=== PATIENT | female | born 1960 | race Caucasian/White ===

== ENCOUNTER → 2018-02-20 | Outpatient (CLI) | payer BC ==
--- NOTE | 2018-02-22 09:14 | MM ---
Reason for exam: screening (asymptomatic). Last mammogram was performed 1 year and 5 months ago. History: Patient is postmenopausal. Family history of breast cancer in maternal grandmother. Physical Findings: A clinical breast exam by your physician is recommended on an annual basis and results should be correlated with mammographic findings. MG Screening Mammo w CAD Bilateral CC and MLO view(s) were taken. XCCL view(s) were taken of the left breast. Prior study comparison: September 29, 2016, bilateral MG screening mammo w CAD. March 19, 2015, bilateral MG screening mammo w CAD. There are scattered fibroglandular densities. No significant changes when compared with prior studies. ASSESSMENT: Negative, BI-RAD 1 RECOMMENDATION: Routine screening mammogram of both breasts in 1 year.
== END | disposition home or self-care (01) ==
LOC: RADMAMWWP 13:25
PROVIDERS: ATTEND Family Medicine
DX: Z12.31 Encounter for screening mammogram for malignant neoplasm of breast (principal)
CPT/HCPCS: 77067

== ENCOUNTER → 2019-08-01 | Outpatient (CLI) | payer BC ==
--- NOTE | 2019-08-02 09:08 | MM ---
Reason for exam: screening (asymptomatic). Last mammogram was performed 1 year and 5 months ago. History: Patient is postmenopausal. Family history of breast cancer in maternal grandmother. Physical Findings: A clinical breast exam by your physician is recommended on an annual basis and results should be correlated with mammographic findings. MG Screening Mammo w CAD Bilateral CC and MLO view(s) were taken. Prior study comparison: February 20, 2018, bilateral MG screening mammo w CAD. September 29, 2016, bilateral MG screening mammo w CAD. There are scattered fibroglandular densities. There are benign appearing round calcifications bilaterally. There is no discrete abnormality. ASSESSMENT: Benign, BI-RAD 2 RECOMMENDATION: Routine screening mammogram of both breasts in 1 year.
== END ==
LOC: RADMAMWWP 11:08
PROVIDERS: ATTEND Family Medicine
DX: Z12.31 Encounter for screening mammogram for malignant neoplasm of breast (principal)
CPT/HCPCS: 77067

== ENCOUNTER → 2020-08-04 | Outpatient (CLI) | payer BC ==
--- NOTE | 2020-08-05 13:53 | MM ---
Reason for exam: screening (asymptomatic). Last mammogram was performed 1 year ago. History: Patient is postmenopausal. Family history of breast cancer in maternal grandmother. Physical Findings: A clinical breast exam by your physician is recommended on an annual basis and results should be correlated with mammographic findings. MG Screening Mammo w CAD Bilateral CC and MLO view(s) were taken. Prior study comparison: August 01, 2019, bilateral MG screening mammo w CAD. February 20, 2018, bilateral MG screening mammo w CAD. There are scattered fibroglandular densities. Stable benign calcifications. There is no discrete abnormality. No significant changes when compared with prior studies. ASSESSMENT: Benign, BI-RAD 2 RECOMMENDATION: Routine screening mammogram of both breasts in 1 year.
== END | disposition home or self-care (01) ==
LOC: RADMAMWWP 16:19
PROVIDERS: ATTEND Obstetrics & Gynecology
DX: Z12.31 Encounter for screening mammogram for malignant neoplasm of breast (principal)
CPT/HCPCS: 77067

== ENCOUNTER → 2022-04-28 | Outpatient (CLI) | payer BC ==
--- NOTE | 2022-04-28 12:31 | BD ---
EXAMINATION TYPE: Axial Bone Density DATE OF EXAM: 04/28/2022 COMPARISON: NONE CLINICAL HISTORY: 61 years year old Female. 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 Type 1 Diabetes: NO 2. Hyperthyroidism: NO 3. Menopause before 45: NO 4. Malnutrition: NO 5. Chronic liver disease: NO Rheumatoid Arthritis: NO Current Tobacco Use: NO RISK FACTORS HISTORY OF: Hip Fracture (Right/Left): NO Spine Fracture: NO History of Wrist Fracture: NO Surgery to Spine/Hip(right/left)/Wrist (right/left): NO Family History of Osteoporosis: NO Active: YES Diet low in dairy products/other sources of calcium: NO Postmenopausal woman: YES Take estrogen and/or progesterone medications: NO Lost more than 2 inches in height since high school: NO Frequent falls: NO Poor Health: NO Hyperparathyroidism: NO Adrenal Insufficiency: NO MEDICATIONS: Prednisone or other steroids: NO Thyroid Medications:NO Osteoporosis Medications: Which medication: NO Additional Medications: BP MEDS, CHOLESTEROL MEDS, METFORMIN, FISH OIL, EXAM MEASUREMENTS: Bone mineral densitometry was performed using the [employer] System. Bone mineral density as measured about the Lumbar spine is: ----- L1-L4(G/cm2): 1.409 T Score Values are as follows: ----- L1: 1.9 ----- L2: 1.8 ----- L3: 2.2 ----- L4: 1.6 ----- L1-L4: 1.9 BASELINE STUDY Bone mineral density about the R hip (g/cm2): 1.290 Bone mineral density about the L hip (g/cm2): 1.153 T Score values are as follows: -----R Neck: 1.8 -----L Neck: 0.8 -----R Total: 1.6 -----L Total: 1.2 BASELINE STUDY FRAX%s: The graph provided illustrates a 5.1% chance for a major osteoporotic fx and a 0.1% chance fo r the hips probability for fx in 10 years time. IMPRESSION: Normal (Values between +1 and -1 indicate normal bone mass). Consider repeating this study in 5 year s or sooner if there is some new clinical indication. NOTE: T-SCORE=SD OF THE YOUNG ADULT MEAN.
--- NOTE | 2022-04-29 08:58 | MM ---
Reason for Exam: Screening (asymptomatic). Last mammogram was performed 1 year(s) and 9 month(s) ago. Patient History: Menarche at age 8. First Full-Term at age 29. Late child-bearing (after 30). Postmenopausal. Maternal grandmother had breast cancer. Risk Values: Salma 5 year model risk: 2.3%. NCI Lifetime model risk: 10.3%. Prior Study Comparison: 02/20/2018 Bilateral Screening Mammogram, [facility]. 08/01/2019 Bilateral Screening Mammogram, [facility]. 08/04/2020 Bilateral Screening Mammogram, [facility]. Tissue Density: The breast tissue is heterogeneously dense. This may lower the sensitivity of mammography. Findings: Analyzed By CAD. There is no suspicious group of microcalcifications or new suspicious mass in either breast. Stable benign-appearing calcifications bilaterally. Overall Assessment: Benign, BI-RAD 2 Management: Screening Mammogram of both breasts in 1 year. A clinical breast exam by your physician is recommended on an annual basis and results should be correlated with mammographic findings. Electronically signed and approved by: Marquez Canchola M.D. Radiologis
== END | disposition home or self-care (01) ==
LOC: RADMAMWWP 10:09
PROVIDERS: ATTEND Obstetrics & Gynecology
DX: Z12.31 Encounter for screening mammogram for malignant neoplasm of breast (principal); Z78.0 Asymptomatic menopausal state; Z80.3 Family history of malignant neoplasm of breast
CPT/HCPCS: 77067; 77080

== ENCOUNTER → 2023-07-04 | Outpatient (CLI) | payer BC ==
--- NOTE | 2023-07-05 22:31 | MM ---
Reason for Exam: Screening (asymptomatic). Last mammogram was performed 1 year(s) and 2 month(s) ago. Patient History: Menarche at age 8. First Full-Term at age 29. Late child-bearing (after 30). Postmenopausal. Maternal grandmother had breast cancer. Risk Values: Salma 5 year model risk: 2.4%. NCI Lifetime model risk: 9.7%. Prior Study Comparison: 08/01/2019 Bilateral Screening Mammogram, [facility]. 08/04/2020 Bilateral Screening Mammogram, [facility]. 04/28/2022 Bilateral MG screening mammo w CAD, [facility]. Tissue Density: There are scattered fibroglandular densities. Findings: Analyzed By CAD. There is no suspicious group of microcalcifications or new suspicious mass in either breast. Overall Assessment: Negative, BI-RAD 1 Management: Screening Mammogram of both breasts in 1 year. . Patient should continue monthly self-breast exams. A clinical breast exam by your physician is recommended on an annual basis. This exam should not preclude additional follow-up of suspicious palpable abnormalities. Note on Salma scores and lifetime risk: 1. A Salma score greater than 3% is considered moderate risk. If this is the case, consider specialist referral to assess eligibility for a risk reducing agent. 2. If overall lifetime risk for the development of breast cancer is 20% or higher, the patient may qualify for future screening with alternating mammogram and breast MRI. Electronically signed and approved by: Selena Camargo M.D. Radiologist
== END | disposition home or self-care (01) ==
LOC: RADMAMWWP 16:16
PROVIDERS: ATTEND Family Medicine
DX: Z12.31 Encounter for screening mammogram for malignant neoplasm of breast (principal); Z78.0 Asymptomatic menopausal state; Z80.3 Family history of malignant neoplasm of breast
CPT/HCPCS: 77063; 77067